=== PATIENT | male | born 1955 | race African-American/Black ===

== ENCOUNTER 2017-09-19 15:02 | Emergency (ER) | payer OTHER ==
[2017-09-19] MEDS ORDERED: ASPIRIN 81 MG TABLET, CHEWABLE PO ONE (15:37)
[2017-09-19] MEDS ORDERED: ONDANSETRON 4 MG TAB.RAPDIS PO ONE (15:37)
--- NOTE | 2017-09-19 15:46 | ER Document Report ---
ED Medical Screen (RME) - General TRAVEL OUTSIDE OF THE [place] IN LAST 30 DAYS: No - General Chief Complaint: Nausea Stated Complaint: ABDOMINAL ISSUES Time Seen by Provider: 09/19/17 15:30 Notes: Patient is a 62 year old male presenting to the emergency department for nausea and dizziness. Patient states he felt like this previously when he had an MN. Patient denies any chest pain, difficulty breathing, or vomiting. Patient states he had a triple bypass x 10 years ago and his last catheterization was 1 year ago. 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 (TRACEE LCUERO) - Related Data Allergies/Adverse Reactions: No Known Allergies Allergy (Verified 09/19/17 15:06) Home Medications: Current Home Medications Aspirin [Aspirin EC] 81 mg PO DAILY 09/19/17 [History] Carvedilol [Coreg] 1 tab PO Q12 09/19/17 [History] Lisinopril [Prinivil 40 mg Tablet] 20 mg PO DAILY 09/19/17 [History] Simvastatin [Simvastatin] 40 mg PO DAILY 09/19/17 [History] Zolpidem Tartrate 10 mg PO QHS PRN 09/19/17 [History] Past Medical History - Social History Chew tobacco use (# tins/day): No Frequency of alcohol use: None Drug Abuse: None - Past Medical History Cardiac Medical History: Reports: Hx Heart Attack, Hx Hypercholesterolemia, Hx Hypertension Renal/ Medical History: Denies: Hx Peritoneal Dialysis Past Surgical History: Reports: Hx Coronary Artery Bypass Graft, Hx Open Heart Surgery - CABG x 3 - Immunizations Hx Diphtheria, Pertussis, Tetanus Vaccination: No History of Influenza Vaccine for 08/2017 - 01/2018 Season: No Physical Exam - Vital signs Vitals: Temp Pulse Resp BP Pulse Ox 98.6 F 65 20 126/85 H 98 09/19/17 15:06 09/19/17 15:06 09/19/17 15:06 09/19/17 15:06 09/19/17 15:06 - Notes Notes: GENERAL: Alert, interacts well. No acute distress. LUNGS: Clear to auscultation bilaterally, no wheezes, rales, or rhonchi. No respiratory distress. HEART: Regular rate and rhythm. No murmurs, gallops, or rubs. (TRACEE LUCERO) - Vital Signs Vital signs: Temp Pulse Resp BP Pulse Ox 98.6 F 65 20 126/85 H 98 09/19/17 15:06 09/19/17 15:06 09/19/17 15:06 09/19/17 15:06 09/19/17 15:06 Scribe Documentation - Scribe Written by Amitaibe:: Duc Hand 09/19/2017 15:47 acting as scribe for :: Angel
--- NOTE | 2017-09-19 16:15 | ER Document Report ---
ED GI/ - General Chief Complaint: Nausea Stated Complaint: ABDOMINAL ISSUES Time Seen by Provider: 09/19/17 15:30 Notes: The patient is a 62-year-old male, past medical history CAD status post triple bypass 10 years ago, presents with episode of upper abdominal cramping and slight nausea that felt like indigestion. He drank stephenie ed and took a Tums with relief of his symptoms. He is concerned because 10 years ago, he had similar symptoms and was told he had a heart attack. He is currently completely asymptomatic and denies chest pain, shortness of breath, nausea, vomiting, current abdominal pain, fevers, diarrhea, constipation or urinary symptoms. TRAVEL OUTSIDE OF THE [place] IN LAST 30 DAYS: No - Related Data Allergies/Adverse Reactions: No Known Allergies Allergy (Verified 09/19/17 15:06) Home Medications: Current Home Medications Aspirin [Aspirin EC] 81 mg PO DAILY 09/19/17 [History] Carvedilol [Coreg] 1 tab PO Q12 09/19/17 [History] Lisinopril [Prinivil 40 mg Tablet] 20 mg PO DAILY 09/19/17 [History] Simvastatin [Simvastatin] 40 mg PO DAILY 09/19/17 [History] Zolpidem Tartrate 10 mg PO QHS PRN 09/19/17 [History] Past Medical History - General Information source: Patient - Social History Smoking Status: Former Smoker Chew tobacco use (# tins/day): No Frequency of alcohol use: None Drug Abuse: None Family History: Reviewed & Not Pertinent - Past Medical History Cardiac Medical History: Reports: Hx Heart Attack, Hx Hypercholesterolemia, Hx Hypertension Renal/ Medical History: Denies: Hx Peritoneal Dialysis Past Surgical History: Reports: Hx Coronary Artery Bypass Graft, Hx Open Heart Surgery - CABG x 3 - Immunizations Hx Diphtheria, Pertussis, Tetanus Vaccination: No Review of Systems - Review of Systems Notes: REVIEW OF SYSTEMS: CONSTITUTIONAL: -fevers, -chills EENT: -eye pain, -difficulty swallowing, -nasal congestion CARDIOVASCULAR:-chest pain, -syncope. RESPIRATORY: -cough, -SOB GASTROINTESTINAL: +abdominal pain, +nausea, -vomiting, -diarrhea GENITOURINARY: -dysuria, -hematuria MUSCULOSKELETAL: -back pain, -neck pain SKIN: -rash or skin lesions. HEMATOLOGIC: -easy bruising or bleeding. LYMPHATIC: -swollen, enlarged glands. NEUROLOGICAL: -altered mental status or loss of consciousness, -headache, - neurologic symptoms PSYCHIATRIC: -anxiety, -depression. ALL OTHER SYSTEMS REVIEWED AND NEGATIVE. Physical Exam - Vital signs Vitals: Temp Pulse Resp BP Pulse Ox 98.6 F 65 20 126/85 H 98 09/19/17 15:06 09/19/17 15:06 09/19/17 15:06 09/19/17 15:06 09/19/17 15:06 - Notes Notes: PHYSICAL EXAMINATION: GENERAL: Well-appearing, well-nourished and in no acute distress. HEAD: Atraumatic, normocephalic. EYES: Pupils equal round and reactive to light, extraocular movements intact, sclera anicteric, conjunctiva are normal. ENT: nares patent, oropharynx clear without exudates. Moist mucous membranes. NECK: Normal range of motion, supple without lymphadenopathy LUNGS: Breath sounds clear to auscultation bilaterally and equal. No wheezes rales or rhonchi. HEART: Regular rate and rhythm without murmurs ABDOMEN: Soft, nontender, normoactive bowel sounds. No guarding, no rebound. No masses appreciated. EXTREMITIES: Normal range of motion, no pitting or edema. No cyanosis. NEUROLOGICAL: Cranial nerves grossly intact. Normal speech, normal gait. Normal sensory and motor exams. PSYCH: Normal mood, normal affect. SKIN: Warm, Dry, normal turgor, no rashes or lesions noted. Course - Re-evaluation Re-evalutation: Patient appears very well. He has absolutely no abdominal tenderness and his EKG and labs are completely unremarkable. There is no sign of active ischemia and he is drinking without any nausea or vomiting. Instructed patient to follow -up with his primary care physician for further evaluation and treatment. - Vital Signs Vital signs: Temp Pulse Resp BP Pulse Ox 98.6 F 65 15 119/80 97 09/19/17 15:06 09/19/17 15:06 09/19/17 18:01 09/19/17 18:01 09/19/17 18:01 - Laboratory Result Diagrams: 09/19/17 17:40 09/19/17 17:40 Laboratory results interpreted by me: 09/19/17 09/19/17 17:40 17:40 MCH 26.5 L RDW 15.9 H Calcium 10.3 H - EKG Interpretation by Me EKG shows normal: Sinus rhythm, [place], Intervals, QRS Complexes, ST-T Waves Rate: Normal [place]/QRS: RBBB, LAHB/LAFB When compared to previous EKG there are: No significant change Discharge - Discharge Clinical Impression: Abdominal cramping Condition: Stable Disposition: HOME, SELF-CARE Additional Instructions: ABDOMINAL PAIN: There are many causes of abdominal pain. Pain can mean a serious problem requiring surgery (such as appendicitis). It can also be an innocent problem that goes away on its own (such as a viral infection). Often, time must pass to determine the cause of pain. The physician does not feel that hospitalization is necessary, at present. Things may change within the next 24 hours. Call the doctor or come back for re- examination if any problems occur, such as: (1) Pain that becomes more severe, steady, or becomes concentrated in one specific area. Also, pain that is more severe with movement or coughing. (2) Vomiting that persists or becomes more frequent. (3) Blood in the vomitus, urine, or bowel movements. Blood in the stool may have a tarry or black appearance. (4) Shaking chills or fever greater than 100 degrees F. (5) The abdomen becomes more distended or swollen. (6) Bowel movements cease. (7) Failure to improve as expected. NORMAL EXAM AND WORKUP: At this time, your examination and workup show no significant abnormality. No significant abnormal physical findings are noted. All laboratory, EKG, and imaging (x-ray, CT scans, ultrasound) studies that were ordered show no significant abnormality. Although your examination and all studies that were ordered showed no significant abnormal finding, there are no examinations and no studies that are 100% accurate. There is always the possibility that some abnormality could exist and not be detected with physical examination or within the limits and capabilities of laboratory and other studies. You should return or follow up as you were instructed on your visit today for further evaluation if your symptoms do not resolve. FOLLOW-UP CARE: If you have been referred to a physician for follow-up care, call the physician s office for an appointment as you were instructed or within the next two days. If you experience worsening or a significant change in your symptoms, notify the physician immediately or return to the Emergency Department at any time for re-evaluation. CHEST PAIN OF UNCLEAR CAUSE: The exact cause of your chest pain isn't clear. Fortunately, there is no evidence of a dangerous medical condition. Further testing may be required to find the source of the pain. Most often, we find that this pain is coming from the chest wall -- the muscles or rib joints in the chest. But chest pain can come from the lung and lung lining, the esophagus, the heart valves or heart lining, and even the stomach or gallbladder. Rest. Eat lightly until the pain is gone. We may prescribe medicine for pain and inflammation. You should call the physician immediately if the pain radiates to the shoulder, jaw or arms; if you start to run a fever or develop a cough; or if you develop shortness of breath, or other new or alarming symptoms. NORMAL EXAM AND WORKUP: At this time, your examination and workup show no significant abnormality. No significant abnormal physical findings were noted. All laboratory, EKG, and imaging (x-ray, CT scans, ultrasound) studies that were ordered show no significant abnormality. Although your examination and all studies that were ordered showed no significant abnormal finding, there are no examinations and no studies that are 100% accurate. There is always the possibility that some abnormality could exist and not be detected with physical examination or within the limits and capabilities of laboratory and other studies. You should return or follow up as you were instructed on your visit today for further evaluation if your symptoms do not resolve. CHEST WALL PAIN: Your chest pain may be coming from the chest wall. This is often caused by straining the muscles or joints in the chest during physical activity, direct trauma, coughing, or vigorous vomiting. Persons with arthritis are especially prone to this type of pain, due to inflammation of the cartilage joints near the breast bone. Occasionally, no cause can be found. Rest from strenuous physical activity. This kind of chest pain is usually made worse by movement of the chest. Depending on the symptoms, we may prescribe medicine for pain, muscle relaxation, and antiinflammatory effects. If the pain is new, and seems to be due to muscle strain, cold packs can help. Otherwise, apply gentle warmth to the painful area for 15 minutes every hour or two. You should call contact the doctor immediately if things change. Further evaluation is needed if you develop a fever or cough, if the nature of the pain changes, or if you become short of breath. ANGINA EPISODE: Your physician has diagnosed the pain you experienced as an episode of angina. Angina occurs when a portion of the heart muscle temporarily lacks oxygen. It does not cause any permanent heart damage, but serves as a warning. Hospitalization is not necessary now. Evaluation of your cardiac condition , and medical therapy for angina will be necessary. It's important you be sure to keep all appointments and take medication exactly as prescribed. Angina is usually treated with a type of "nitrate" medication. This is available as ointment, pills, or sublingual (under the tongue) tablets. Depending on your clinical situation, other medications may be added to help control angina. These may include beta blockers or calcium blockers. If episodes of angina are occurring with increased frequency, or if chest pain lasts longer than 15 minutes or does not respond to nitroglycerin, you must seek emergency medical care immediately. ACID REFLUX DISEASE (GERD): Gastro-Esophageal Reflux Disease (GERD) is caused by stomach acid refluxing back up into the esophagus. The valve at the end of the esophagus may be weak. This is common in persons with a hiatal hernia. GERD symptoms can include indigestion, chest pain, heartburn, or food "sticking." Certain foods, alcohol, and aspirin can make GERD worse. Treatment depends on the severity. Usually, antacids or acid-suppressing medicines are used. When the esophagus is acutely inflamed, the physician will often prescribe membrane-protective drugs such as Carafate. Some patients benefit from medication such as Reglan that tightens the valve at the top of the stomach. Avoid those foods that bring on your symptoms. For many people, these foods are coffee, chocolate, onions, garlic, and carbonated drinks. Don't use alcohol, aspirin, caffeine, or tobacco. Don't eat late at night -- within 4 hours of bedtime. Don't over-eat. If necessary, elevate the head of your bed about 4 inches so that stomach acid will not roll up into your esophagus. Call the doctor if you develop severe chest pain, inability to swallow fluids, fever, or worsening symptoms. ANTACID THERAPY: You have been instructed to start antacid therapy. Antacids directly neutralize stomach acid. This is useful for acid irritation of the esophagus, gastritis, and ulcers. You should take two tablespoons of antacid one hour after each meal and three hours after each meal. If you are not eating, take the antacid every two hours. If you are using a concentrate (such as Maalox TC), use only one tablespoon. Many antacids affect the bowels. The most common problem is diarrhea. In this case, a pure aluminum hydroxide antacid (such as AlternaGel) can be substituted for some or all doses. If the problem is constipation, add a teaspoon of Milk of Magnesia to each dose. Call the doctor if you experience continued diarrhea or constipation, or if you develop lightheadedness, bloody stool or vomitus, severe abdominal pain, or black stool. FOLLOW-UP CARE: If you have been referred to a physician for follow-up care, call the physician s office for an appointment as you were instructed or within the next two days. If you experience worsening or a significant change in your symptoms, notify the physician immediately or return to the Emergency Department at any time for re-evaluation.
--- NOTE | 2017-09-19 16:23 | RADIOLOGY REPORT (SQ) ---
EXAM DESCRIPTION: CHEST SINGLE VIEW COMPLETED DATE/TIME: 09/19/2017 4:14 pm REASON FOR STUDY: nausea, h/o AK felt similar COMPARISON: 01/15/2008 EXAM PARAMETERS: NUMBER OF VIEWS: One view. TECHNIQUE: Single frontal radiographic view of the chest acquired. RADIATION DOSE: NA LIMITATIONS: None. FINDINGS: LUNGS AND PLEURA: No opacities, masses or pneumothorax. No pleural effusion. MEDIASTINUM AND HILAR STRUCTURES: No masses. Contour normal. HEART AND VASCULAR STRUCTURES: Heart normal in size. Normal vasculature. BONES: No acute findings. HARDWARE: Median sternotomy wires noted and intact. Prior CABG. OTHER: No other significant finding. IMPRESSION: NO ACUTE RADIOGRAPHIC FINDING IN THE CHEST. TECHNICAL DOCUMENTATION: JOB ID: [id number]
[2017-09-19 18:27] LABS: ABSOLUTE BASOPHILS # (AUTO) 0.1 10^3/uL (0.0-0.2); ABSOLUTE EOSINOPHILS # (AUTO) 0.1 10^3/uL (0.0-0.6); ABSOLUTE LYMPHOCYTES (AUTO) 2.7 10^3/uL (0.5-4.7); ABSOLUTE MONOCYTES (AUTO) 0.6 10^3/uL (0.1-1.4); ABSOLUTE NEUT (AUTO) 3.3 10^3/uL (1.7-8.2); EOSINOPHILS % (AUTO) 2.1 % (0-6); HEMATOCRIT 42.1 % (37.9-51.0); HGB HCT DIFFERENCE -0.1; LYMPHOCYTES % (AUTO) 39.6 % (13-45); MEAN CORPUSCULAR HEMOGLOBIN 26.5 pg (27.0-33.4); MEAN CORPUSCULAR HGB CONC 33.3 g/dL (32.0-36.0); MEAN CORPUSCULAR VOLUME 80 fl (80-97); MONOCYTES % (AUTO) 8.6 % (3-13); RED BLOOD COUNT 5.28 10^6/uL (4.35-5.55); RED CELL DISTRIBUTION WIDTH 15.9 % (11.5-14.0); SEGMENTED NEUTROPHILS % (AUTO) 48.7 % (42-78); WHITE BLOOD COUNT 6.8 10^3/uL (4.0-10.5)
[2017-09-19 18:41] LABS: ALANINE AMINOTRANSFERASE 36 U/L (21-72); ALBUMIN 4.5 g/dL (3.5-5.0); ALKALINE PHOSPHATASE 78 U/L (38-126); ANION GAP 13 (5-19); ASPARTATE AMINO TRANSFERASE 17 U/L (17-59); BILIRUBIN,DIRECT 0.4 mg/dL (0.0-0.4); BILIRUBIN,TOTAL 0.5 mg/dL (0.2-1.3); BLOOD UREA NITROGEN 11 mg/dL (7-20); CALCIUM 10.3 mg/dL (8.4-10.2); CARBON DIOXIDE 27 mmol/L (22-30); CHLORIDE 105 mmol/L (98-107); CREATINE KINASE 134 U/L (55-170); CREATININE RESULT 1.05 mg/dL (0.52-1.25); GLUCOSE 95 mg/dL (75-110); POTASSIUM 4.5 mmol/L (3.6-5.0); SODIUM 144.6 mmol/L (137-145); TOTAL PROTEIN 8.1 g/dL (6.3-8.2)
[2017-09-19 19:03] VITALS: BP 120/80
--- NOTE | 2017-09-20 09:20 | EKG REPORT ---
SEVERITY:- ABNORMAL ECG - SINUS RHYTHM VENTRICULAR PREMATURE COMPLEX RBBB AND LPFB INFERIOR INFARCT, AGE INDETERMINATE : Confirmed by: Carlene Trent MD 20-Sep-2017 09:19:22
== END 2017-09-19 19:00 | disposition home or self-care (01) ==
LOC: ER 15:02
DX: R10.9 Unspecified abdominal pain (principal); R11.0 Nausea; I25.10 Atherosclerotic heart disease of native coronary artery without angina pectoris; Z79.899 Other long term (current) drug therapy; Z87.891 Personal history of nicotine dependence
CPT/HCPCS: 93005; 99284; 36415; 82550; 83690; 85025; 80053; 84484; 71010; 93010; S0119

== ENCOUNTER → 2017-12-11 | Outpatient (CLI) | payer OTHER ==
--- NOTE | 2017-12-11 12:49 | RADIOLOGY REPORT (SQ) ---
EXAM DESCRIPTION: CT LUNG CANCER SCREENING COMPLETED DATE/TIME: 12/11/2017 8:43 am REASON FOR STUDY: Z72.0 TOBACCO USE Z72.0 TOBACCO USE Has the patient had a Chest CT scan within the past year? No Was the patient offered tobacco cessation counseling? Yes Was the patient engaged in shared decision making for this test? Yes Does the patient have signs or symptoms of Lung Cancer? No Is the patient a smoker? No How many packs per year? 365 How many years since quitting smoking? More than 5 years Patients age: 62 COMPARISON: None. TECHNIQUE: Low Dose CT scan performed of the chest without intravenous contrast for purposes of scre ening for lung cancer. Images reviewed with lung, soft tissue and bone windows. Reconstructed coron al and sagittal MPR images reviewed. All images stored on PACS. All CT scanners at this facility use dose modulation, iterative reconstruction, and/or weight based d osing when appropriate to reduce radiation dose to as low as reasonably achievable (ALARA). [facility]: Dose Right [facility]: CareDose [facility]: Dose Right [facility]: Teradose 4D [facility]: Open-Xchange RADIATION DOSE: 2.8 mGy. . LIMITATIONS: None FINDINGS: LUNGS AND PLEURA: No masses or nodules. No pleural effusions or calcifications. No pne umothorax. No scarring or interstitial changes. HILAR AND MEDIASTINAL STRUCTURES: No identified masses. No abnormal nodes. HEART AND VASCULAR STRUCTURES: No aortic aneurysm. No pericardial effusion. No cardiac devices. CORONARY ARTERY CALCIFICATIONS: No significant calcifications. Patient is post CABG UPPER ABDOMEN, THYROID, BONES, OTHER SOFT TISSUES: No significant findings. IMPRESSION: NO SIGNIFICANT FINDING IN THE LUNGS ON NON-CONTRASTED CHEST CT. NO OTHER CLINICALLY SIGNIFICANT/POTENTIALLY CLINICALLY SIGNIFICANT FINDINGS LUNGRADS: LUNGRADS: 1 NEGATIVE. NO NODULES, OR DEFINITELY BENIGN NODULES MODIFIER: NONE RECOMMENDATION: Continue annual screening with LDCT in 12 months. COMMENT: CRITERIA: No lung nodules. Nodules with specific calcifications: Complete, central, popcorn, concentric rings and fat containin g nodules. TECHNICAL DOCUMENTATION: JOB ID: [id number] Quality ID # [id number]: Final reports with documentation of one or more dose reduction techniques (e.g., Au tomated exposure control, adjustment of the mA and/or kV according to patient size, use of iterative reconstruction technique) 2010 [facility]
== END ==
LOC: RAD 09:00
PROVIDERS: ATTEND Physician Assistant
DX: Z12.2 Encounter for screening for malignant neoplasm of respiratory organs (principal); Z72.0 Tobacco use; Z95.1 Presence of aortocoronary bypass graft
CPT/HCPCS: G0297

== ENCOUNTER → 2019-09-07 | Outpatient (CLI) | payer OTHER, MEDICARE ==
[2019-09-07 12:47] LABS: ANION GAP 7 (5-19); BLOOD UREA NITROGEN 10 mg/dL (7-20); CALCIUM 9.4 mg/dL (8.4-10.2); CARBON DIOXIDE 30 mmol/L (22-30); CHLORIDE 105 mmol/L (98-107); GLUCOSE 99 mg/dL (75-110); POTASSIUM 4.8 mmol/L (3.6-5.0)
== END ==
LOC: OD 11:44
PROVIDERS: ATTEND Family Medicine
DX: E87.5 Hyperkalemia (principal)
CPT/HCPCS: 36415; 80048

== ENCOUNTER 2019-11-15 02:08 | Emergency (ER) | payer MEDICARE, OTHER ==
[2019-11-15 02:34] VITALS: BP 150/84
--- NOTE | 2019-11-15 14:24 | EKG REPORT ---
SEVERITY:- ABNORMAL ECG - SINUS RHYTHM RBBB AND LPFB INFERIOR INFARCT, AGE INDETERMINATE : Confirmed by: Pankaj Gaxiola 15-Nov-2019 14:23:19
== END 2019-11-15 02:49 | disposition left against medical advice (07) ==
LOC: ER 02:08
DX: Z53.21 Procedure and treatment not carried out due to patient leaving prior to being seen by health care provider (principal)
CPT/HCPCS: 93005; 93010

== ENCOUNTER 2019-11-29 21:55 | Observation (INO) | payer MEDICARE, OTHER ==
[2019-11-29] MEDS ORDERED: ASPIRIN 81 MG TABLET, CHEWABLE PO ONE (22:52)
--- NOTE | 2019-11-29 22:58 | ER Document Report ---
ED Medical Screen (RME) - General Chief Complaint: Epigastric Pain Stated Complaint: EPIGASTRIC PAIN Time Seen by Provider: 11/29/19 22:47 Primary Care Provider: MERLYN MIRELES MD [Primary Care Provider] - Follow up as needed Notes: Patient is a 64-year-old male who presents to the emergency department with a chief complaint of epigastric pain. Patient has history of of an [place] in the past. His symptoms started around 2100 this evening. He makes some baking soda and water and it helped with the symptoms. Exam: S1, S2. I have greeted and performed a rapid initial assessment of this patient. A comprehensive ED assessment and evaluation of the patient, analysis of test results and completion of medical decision making process will be conducted by an additional ED providers. TRAVEL OUTSIDE OF THE [place] IN LAST 30 DAYS: No - Related Data Allergies/Adverse Reactions: No Known Allergies Allergy (Verified 09/19/17 15:06) Home Medications: omeprazole 20 mg qam. lisinopril 20 mg qday. ezetimibe 10 mg qday. atoravastatin 40 mg po qday. coreg 25 mg po qday. asa 81 mg po qday Past Medical History - Past Medical History Cardiac Medical History: Reports: Hx Heart Attack, Hx Hypercholesterolemia, Hx Hypertension Renal/ Medical History: Denies: Hx Peritoneal Dialysis Past Surgical History: Reports: Hx Coronary Artery Bypass Graft, Hx Open Heart Surgery - CABG x 3 - Immunizations Hx Diphtheria, Pertussis, Tetanus Vaccination: No Physical Exam - Vital signs Vitals: Temp Pulse Resp BP Pulse Ox 98.3 F 62 18 138/69 H 96 11/29/19 22:08 11/29/19 22:08 11/29/19 22:08 11/29/19 22:08 11/29/19 22:08 Course - Vital Signs Vital signs: Temp Pulse Resp BP Pulse Ox 98.3 F 62 18 138/69 H 96 11/29/19 22:08 11/29/19 22:08 11/29/19 22:08 11/29/19 22:08 11/29/19 22:08 Doctor's Discharge - Discharge Referrals: MERLYN MIRELES MD [Primary Care Provider] - Follow up as needed
[2019-11-29 23:09] LABS: ABSOLUTE BASOPHILS # (AUTO) 0.1 10^3/uL (0.0-0.2); ABSOLUTE EOSINOPHILS # (AUTO) 0.1 10^3/uL (0.0-0.6); ABSOLUTE LYMPHOCYTES (AUTO) 2.6 10^3/uL (0.5-4.7); ABSOLUTE MONOCYTES (AUTO) 0.8 10^3/uL (0.1-1.4); ABSOLUTE NEUT (AUTO) 5.7 10^3/uL (1.7-8.2); BASOPHILS % (AUTO) 0.7 % (0-2); EOSINOPHILS % (AUTO) 1.5 % (0-6); HEMATOCRIT 37.2 % (37.9-51.0); HEMOGLOBIN 12.1 g/dL (13.5-17.0); LYMPHOCYTES % (AUTO) 28.3 % (13-45); MEAN CORPUSCULAR HEMOGLOBIN 25.8 pg (27.0-33.4); MEAN CORPUSCULAR HGB CONC 32.6 g/dL (32.0-36.0); MEAN CORPUSCULAR VOLUME 79 fl (80-97); MONOCYTES % (AUTO) 8.1 % (3-13); PLATELET COUNT 202 10^3/uL (150-450); RED BLOOD COUNT 4.71 10^6/uL (4.35-5.55); RED CELL DISTRIBUTION WIDTH 16.6 % (11.5-14.0); SEGMENTED NEUTROPHILS % (AUTO) 61.4 % (42-78); TOTAL CELLS COUNTED % (AUTO) 100 %; WHITE BLOOD COUNT 9.3 10^3/uL (4.0-10.5)
[2019-11-29 23:30] LABS: ALBUMIN 3.6 g/dL (3.5-5.0); ALKALINE PHOSPHATASE 78 U/L (38-126); ANION GAP 7 (5-19); ASPARTATE AMINO TRANSFERASE 18 U/L (17-59); BILIRUBIN,DIRECT 0.3 mg/dL (0.0-0.4); BILIRUBIN,TOTAL 0.3 mg/dL (0.2-1.3); BLOOD UREA NITROGEN 12 mg/dL (7-20); CARBON DIOXIDE 35 mmol/L (22-30); CHLORIDE 102 mmol/L (98-107); CREATINE KINASE 114 U/L (55-170); GLUCOSE 146 mg/dL (75-110); POTASSIUM 3.8 mmol/L (3.6-5.0); TOTAL PROTEIN 6.9 g/dL (6.3-8.2)
--- NOTE | 2019-11-29 23:34 | RADIOLOGY REPORT (SQ) ---
XR CHEST 1 VIEW EXAM DATE: 11/29/2019 10:52 PM [employer] INSPECTOR HISTORY: Epigastric pain; hx of MN. COMPARISON: 09/19/2017 FINDINGS: Stable heart size with prior CABG noted. No pulmonary edema. The lungs are clear. No pleural effusions or pneumothorax. No acute bony findings are seen. IMPRESSION: No evidence of acute cardiopulmonary disease.
--- NOTE | 2019-11-30 04:42 | ER Document Report ---
ED General - General Chief Complaint: Epigastric Pain Stated Complaint: EPIGASTRIC PAIN Time Seen by Provider: 11/29/19 22:47 Mode of Arrival: Ambulatory Information source: Patient Notes: 64-year-old male presented to ED for complaint of epigastric/chest pain. He states he was in his lower chest upper abdomen. He states he has a history of UT with a CABG her blood pressure and cholesterol and reflux. He states his pain started about 9:00 and he ate last about 6:00. He states he took some baking soda water and it helps some. He states he was given aspirin when he came to the emergency room. He states he was concerned because he does have a cardiac history and is got another cardiac appointment in November. He states he is not having any pain at this time. He states he had a similar pain about a week ago and he became concerned because this is the second time he had this pain. Patient is alert oriented respirations regular nonlabored speaking in full sentences. Patient has a negative troponin earlier and I will get the second troponin if it is negative I will send him home is he is no longer having any pain or discomfort. TRAVEL OUTSIDE OF THE [place] IN LAST 30 DAYS: No - HPI Onset: This evening Onset/Duration: Sudden, Gone Quality of pain: No pain Severity: None Pain Level: Denies Associated symptoms: Chest pain - /Epigastric pain Exacerbated by: Denies Relieved by: Denies Similar symptoms previously: Yes Recently seen / treated by doctor: No - Related Data Allergies/Adverse Reactions: No Known Allergies Allergy (Verified 09/19/17 15:06) Home Medications: omeprazole 20 mg qam. lisinopril 20 mg qday. ezetimibe 10 mg qday. atoravastatin 40 mg po qday. coreg 25 mg po qday. asa 81 mg po qday Past Medical History - General Information source: Patient - Social History Smoking Status: Former Smoker Cigarette use (# per day): No Frequency of alcohol use: None Drug Abuse: None Family History: Reviewed & Not Pertinent Patient has suicidal ideation: No Patient has homicidal ideation: No - Past Medical History Cardiac Medical History: Reports: Hx Heart Attack, Hx Hypercholesterolemia, Hx Hypertension Pulmonary Medical History: Reports: None EENT Medical History: Reports: None Neurological Medical History: Reports: None Endocrine Medical History: Reports: Other - boderline dm Renal/ Medical History: Reports: None Malignancy Medical History: Reports None GI Medical History: Reports: Hx Gastroesophageal Reflux Disease Musculoskeletal Medical History: Reports None Skin Medical History: Reports None Psychiatric Medical History: Reports: None Traumatic Medical History: Reports: None Infectious Medical History: Reports: None Past Surgical History: Reports: Hx Coronary Artery Bypass Graft, Hx Open Heart Surgery - CABG x 3 - Immunizations Hx Diphtheria, Pertussis, Tetanus Vaccination: No Review of Systems - Review of Systems Constitutional: No symptoms reported EENT: No symptoms reported Cardiovascular: Chest pain Respiratory: No symptoms reported Gastrointestinal: No symptoms reported Genitourinary: No symptoms reported Male Genitourinary: No symptoms reported Musculoskeletal: No symptoms reported Skin: No symptoms reported Hematologic/Lymphatic: No symptoms reported Neurological/Psychological: No symptoms reported Physical Exam - Vital signs Vitals: Temp Pulse Resp BP Pulse Ox 98.3 F 62 18 138/69 H 96 11/29/19 22:08 11/29/19 22:08 11/29/19 22:08 11/29/19 22:08 11/29/19 22:08 Interpretation: Normal - General General appearance: Appears well, Alert - HEENT Head: Normocephalic, Atraumatic Eyes: Normal Pupils: PERRL - Respiratory Respiratory status: No respiratory distress Chest status: Nontender Breath sounds: Normal Chest palpation: Normal - Cardiovascular Rhythm: Regular Heart sounds: Normal auscultation Murmur: No - Abdominal Inspection: Normal Distension: No distension Bowel sounds: Hyperactive Tenderness: Nontender. No: Tender Organomegaly: No organomegaly - Back Back: Normal, Nontender - Extremities General upper extremity: Normal inspection, Nontender, Normal color, Normal ROM, Normal temperature General lower extremity: Normal inspection, Nontender, Normal color, Normal ROM, Normal temperature, Normal weight bearing. No: Ariana's sign - Neurological Neuro grossly intact: Yes Cognition: Normal Orientation: AAOx4 Ashanti Coma Scale Eye Opening: Spontaneous Taylor Coma Scale Verbal: Oriented Ashanti Coma Scale Motor: Obeys Commands Ashanti Coma Scale Total: 15 Speech: Normal Motor strength normal: LUE, RUE, LLE, RLE Sensory: Normal - Psychological Associated symptoms: Normal affect, Normal mood - Skin Skin Temperature: Warm Skin Moisture: Dry Skin Color: Normal Course - Re-evaluation Re-evalutation: 11/30/19 05:36 Troponin elevated at 0.049 for second level. First level was negative. Patient denies any pain at this time. Spoke with Dr. Noble who stated to put the patient on IMCU observation under Dr. Milner. Patient does have a cardiac history with an UT and CABG. Dr. Alva recommended 1 inch Nitropaste at this time - Vital Signs Vital signs: Temp Pulse Resp BP Pulse Ox 97.9 F 67 19 134/88 H 97 11/30/19 06:11 11/30/19 05:56 11/30/19 08:01 11/30/19 08:01 11/30/19 08:01 - Laboratory Result Diagrams: 11/29/19 22:25 11/30/19 04:35 Laboratory results interpreted by me: 11/29/19 11/29/19 11/30/19 22:25 22:25 04:35 Hgb 12.1 L Hct 37.2 L MCV 79 L MCH 25.8 L RDW 16.6 H Carbon Dioxide 35 H 33 H Creatinine 1.28 H Est GFR (MDRD) Non-Af 56 L Glucose 146 H - Diagnostic Test Radiology reviewed: Image reviewed, Reports reviewed Discharge - Discharge Clinical Impression: Chest pain Qualifiers: Chest pain type: unspecified Qualified Code(s): R07.9 - Chest pain, unspecified Condition: Stable Disposition: ADMITTED OBSERVATION Admitting Provider: Alf - Spoke with Aide Unit Admitted: CU
[2019-11-30 05:02] LABS: ALBUMIN 3.6 g/dL (3.5-5.0); ALKALINE PHOSPHATASE 80 U/L (38-126); ANION GAP 5 (5-19); ASPARTATE AMINO TRANSFERASE 17 U/L (17-59); BILIRUBIN,DIRECT 0.2 mg/dL (0.0-0.4); BILIRUBIN,TOTAL 0.3 mg/dL (0.2-1.3); BLOOD UREA NITROGEN 11 mg/dL (7-20); CALCIUM 9.1 mg/dL (8.4-10.2); CARBON DIOXIDE 33 mmol/L (22-30); CHLORIDE 106 mmol/L (98-107); GLUCOSE 99 mg/dL (75-110); POTASSIUM 4.1 mmol/L (3.6-5.0); TOTAL PROTEIN 6.8 g/dL (6.3-8.2)
[2019-11-30] MEDS ORDERED: NITROGLYCERIN 2% OINTMENT 1 GM PACKET TP ONE (05:33)
--- NOTE | 2019-11-30 09:10 | EKG REPORT ---
SEVERITY:- ABNORMAL ECG - SINUS RHYTHM VENTRICULAR TRIGEMINY RBBB AND LPFB INFERIOR INFARCT, OLD, AT LEAST SINCE [id number] : Confirmed by: Andrey Cortez MD 30-Nov-2019 09:09:45
--- NOTE | 2019-11-30 09:11 | EKG REPORT ---
SEVERITY:- ABNORMAL ECG - SINUS RHYTHM RBBB AND LPFB INFERIOR INFARCT, OLD SINCE [id number]. : Confirmed by: Andrey Cortez MD 30-Nov-2019 09:10:24
[2019-11-30] MEDS ORDERED: NITROGLYCERIN 0.4 MG/TAB 25 TAB/BOTTLE SL PRN (10:42)
[2019-11-30] MEDS ORDERED: IPRATROPIUM/ALBUTEROL 0.5-2.5 MG/3 ML AMPUL NEB PRN (10:45)
[2019-11-30 11:53] LABS: CREATINE KINASE MB 1.5 ng/mL (<4.55); TROPONIN I 0.047 ng/mL
[2019-11-30] MEDS: PANTOPRAZOLE SODIUM 40 MG TABLET.DR PO SCH (13:16)
[2019-11-30] MEDS: ASPIRIN 81 MG TABLET, ENT COATED PO SCH (13:16)
[2019-11-30] MEDS: ENOXAPARIN SODIUM INJ 40 MG/0.4 ML DISP.SYRIN SUBCUT SCH (13:16)
[2019-11-30] MEDS ORDERED: (PENDING PHARMACY ID) (Carvedilol [Coreg] 25 MG) PO SCH (14:30)
[2019-11-30] MEDS ORDERED: (PENDING PHARMACY ID) (Lisinopril [Prinivil 40 Mg Tablet] 20 MG) PO SCH (14:30)
--- NOTE | 2019-11-30 15:18 | PDOC H&P ---
History of Present Illness Admission Date/PCP: 11/30/19 05:45 MERLYN MIRELES MD Patient complains of: Epigastric pain History of Present Illness: MAXINE CARR is a 64 year old male patient of Dr. Mireles who presented to the ED with complain of recurrent epigastric pain over last couple of days. Patient reported that his last episode was about 2 hours before presenting to the ED. He localized his pain to the epigastric region without radiation into his chest, neck, shoulder or upper extremities. His pain was relieved with self administration of baking soda in water with reflux event. Patient denied any associated palpitation, dizziness, or diaphoresis with his chest pain. His initial evaluation and laboratory assessment was unrevealing but his second Troponin I was elevated to indeterminate range. Due to his listed morbidities, there was concern about possible ongoing cardiac event. he was advise hospitalization for further evaluation and management. His morbidities are listed below. Past Medical History Cardiac Medical History: Reports: Myocardial Infarction, Hyperlipidema, Hypertension Pulmonary Medical History: Reports: None EENT Medical History: Reports: None Neurological Medical History: Reports: None Endocrine Medical History: Reports: Other - boderline dm Renal/ Medical History: Reports: None Malignancy Medical History: Reports: None GI Medical History: Reports: Gastroesophageal Reflux Disease Musculoskeltal Medical History: Reports: None Skin Medical History: Reports: None Psychiatric Medical History: Reports: None Traumatic Medical History: Reports: None Infectious Medical History: Reports: None Past Surgical History Past Surgical History: Reports: Coronary Artery Bypass Graft Social History Smoking Status: Never Smoker Drugs: None - Advance Directive Resuscitation Status: Full Code Family History Family History: Reviewed & Not Pertinent Parental Family History Reviewed: Yes Children Family History Reviewed: Yes Sibling(s) Family History Reviewed.: Yes Medication/Allergy Home Medications: Aspirin [Aspirin EC] 81 mg PO DAILY 09/19/17 Carvedilol [Coreg] 25 mg PO Q12 09/19/17 Lisinopril [Prinivil 40 mg Tablet] 20 mg PO DAILY 09/19/17 Atorvastatin Calcium [Lipitor 80 mg Tablet] 80 mg PO QHS 11/30/19 Ezetimibe [Zetia 10 mg Tablet] 10 mg PO DAILY 11/30/19 Fluticasone/Vilanterol [Breo Ellipta 200-25 Mcg INH] 1 puff IH DAILY 01/01/20 Omeprazole 20 mg PO DAILY 11/30/19 Allergies/Adverse Reactions: No Known Allergies Allergy (Verified 09/19/17 15:06) Review of Systems Constitutional: ABSENT: chills, fever(s), headache(s), weight gain, weight loss Eyes: ABSENT: visual disturbances Ears: ABSENT: hearing changes Nose, Mouth, and Throat: ABSENT: headache(s), mouth pain, sore throat, vertigo Cardiovascular: ABSENT: chest pain, dyspnea on exertion, edema, orthropnea, palpitations Respiratory: ABSENT: cough, hemoptysis Gastrointestinal: PRESENT: abdominal pain - epigastric region. ABSENT: constipation, diarrhea, hematemesis, hematochezia, nausea, vomiting Genitourinary: ABSENT: dysuria, hematuria Musculoskeletal: ABSENT: joint swelling Integumentary: ABSENT: rash, wounds Neurological: ABSENT: abnormal gait, abnormal speech, confusion, dizziness, focal weakness, syncope Psychiatric: ABSENT: anxiety, depression, homidical ideation, suicidal ideation Endocrine: ABSENT: cold intolerance, heat intolerance, menstrual abnormalities, polydipsia, polyuria Hematologic/Lymphatic: ABSENT: easy bleeding, easy bruising, lymphadenopathy Allergic/Immunologic: ABSENT: seasonal rhinorrhea Physical Exam Vital Signs: Temp Pulse Resp BP Pulse Ox 98.9 F 58 L 16 139/71 H 97 11/30/19 12:08 11/30/19 12:58 11/30/19 12:58 11/30/19 12:08 11/30/19 12:58 Intake & Output 11/29/19 11/30/19 12/01/19 06:59 06:59 06:59 Weight 113.9 kg 111.6 kg General appearance: PRESENT: no acute distress, obese Head exam: PRESENT: atraumatic, normocephalic Eye exam: PRESENT: conjunctiva pink, EOMI, PERRLA. ABSENT: scleral icterus Ear exam: PRESENT: normal external ear exam Mouth exam: PRESENT: moist Neck exam: PRESENT: full ROM. ABSENT: carotid bruit, JVD, lymphadenopathy, thyromegaly Respiratory exam: PRESENT: clear to auscultation daniel Cardiovascular exam: PRESENT: RRR. ABSENT: diastolic murmur, rubs, systolic murmur Pulses: PRESENT: normal dorsalis pedis pul, +2 pedal pulses bilateral Vascular exam: ABSENT: pallor GI/Abdominal exam: PRESENT: normal bowel sounds, soft. ABSENT: distended, guarding, mass, organolmegaly, rebound, tenderness Rectal exam: PRESENT: deferred Extremities exam: ABSENT: pedal edema Musculoskeletal exam: PRESENT: normal inspection Neurological exam: PRESENT: alert, awake, oriented to person, oriented to place, oriented to time, oriented to situation, CN II-XII grossly intact. ABSENT: motor sensory deficit Psychiatric exam: PRESENT: appropriate affect, normal mood. ABSENT: homicidal ideation, suicidal ideation Skin exam: PRESENT: dry, warm Results Laboratory Results: 11/29/19 22:25 11/30/19 04:35 11/29/19 11/29/19 11/30/19 22:25 22:25 04:35 WBC 9.3 RBC 4.71 Hgb 12.1 L Hct 37.2 L MCV 79 L MCH 25.8 L MCHC 32.6 RDW 16.6 H Plt Count 202 Seg Neutrophils % 61.4 Sodium 143.8 144.2 Potassium 3.8 4.1 Chloride 102 106 Carbon Dioxide 35 H 33 H Anion Gap 7 5 BUN 12 11 Creatinine 1.28 H 1.14 Est GFR ( Amer) > 60 > 60 Glucose 146 H 99 Calcium 9.0 9.1 Total Bilirubin 0.3 0.3 AST 18 17 Alkaline Phosphatase 78 80 Total Protein 6.9 6.8 Albumin 3.6 3.6 11/29/19 11/29/19 11/30/19 22:25 22:25 04:35 Creatine Kinase 114 CK-MB (CK-2) Troponin I < 0.012 0.049 11/30/19 11/30/19 11:14 11:14 Creatine Kinase 125 CK-MB (CK-2) 1.50 Troponin I 0.047 Impressions: Chest X-Ray 11/29/19 22:52 IMPRESSION: No evidence of acute cardiopulmonary disease. Assessment & Plan - Diagnosis (1) Elevated troponin I level Is this a current diagnosis for this admission?: Yes Plan: See covering admitting attending physician orders for details about care plan. (2) Epigastric pain Is this a current diagnosis for this admission?: Yes Plan: See covering admitting attending physician orders for details about care plan. (4) S/P CABG (coronary artery bypass graft) Is this a current diagnosis for this admission?: Yes Plan: See covering admitting attending physician orders for details about care plan. (5) CAD (coronary artery disease), [place] coronary artery Qualifiers: [place] vs. transplanted heart: [place] heart Plan: See covering admitting attending physician orders for details about care plan. (6) HTN (hypertension) Qualifiers: Hypertension type: essential hypertension Qualified Code(s): I10 - Essential (primary) hypertension Is this a current diagnosis for this admission?: Yes Plan: See covering admitting attending physician orders for details about care plan. (7) HLD (hyperlipidemia) Qualifiers: Hyperlipidemia type: unspecified Qualified Code(s): E78.5 - Hyperlipidemia, unspecified Is this a current diagnosis for this admission?: Yes Plan: See covering admitting attending physician orders for details about care plan. (8) GERD (gastroesophageal reflux disease) Qualifiers: Esophagitis presence: esophagitis presence not specified Qualified Code(s): K21.9 - Gastro-esophageal reflux disease without esophagitis Is this a current diagnosis for this admission?: Yes Plan: See covering admitting attending physician orders for details about care plan. - Time Time Spent: 50 to 70 Minutes Medications reviewed and adjusted accordingly: Yes Anticipated discharge: Home Within: Other - Inpatient Certification Based on my medical assessment, after consideration of the patient's comorbidities, presenting symptoms, or acuity I expect that the services needed warrant INPATIENT care.: Yes I certify that my determination is in accordance with my understanding of [employer] 's requirements for reasonable and necessary INPATIENT services [42 CFR 412.3e].: Yes Medical Necessity: Significant Comorbidiites Make Outpatient Treatment Too Risky, Need Close Monitoring Due to Risk of Patient Decompensation, Need For IV Fluids, Need For Continuous Telemetry Monitoring, Need for Pain Control, Risk of Complication if Not Cared For in Hospital, Risk of Diagnosis Which Will Require Inpatient Eval/Care/Monitoring Post Hospital Care: 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
[2019-11-30] MEDS: LISINOPRIL 10 MG TABLET PO SCH (16:30)
--- NOTE | 2019-11-30 19:05 | PDOC CONSULTATION ---
Consultation-Blank Consultation: CARDIOLOGY CONSULTATION by Dr. Carlene Trent on 11/30/2019. Patient seen at 6:30 PM on 11/30/2019. 60 minutes spent with patient more than 50% of time spent in direct patient care. Reason for consultation: Patient with history of coronary artery disease prior NH and history of coronary bypass graft surgery admitted with prolonged epigastric pain. CONSULT REQUESTING PHYSICIAN: Dr. Noble. HISTORY OF PRESENT ILLNESS: Patient is a 64-year-old Afro-[place]ian male with known history of hypertension, history of coronary artery disease with remote history of myocardial infarction and history of PTCA of the right coronary artery prior to 2000. In 2000 the patient had another NH and had coronary artery bypass graft surgery x3 very and he had a BACH placed to the LAD, and reverse saphenous vein graft. Placed to the obtuse marginal 1 branch and is reverse saphenous vein graft to the distal right coronary artery. The patient had remained stable and his last stress test was done in 2018 in the middle months. And this was negative for ischemia, but there was evidence of inferior wall NH.. He also had an echo which showed normal LV ejection fraction. The patient states since the past few days off-and-on he has been having epigastric pressure-like pain with nausea and relief with drinking baking soda and water. The patient states that it starts off with the him eating greasy foods.. He this is not related to exertion. He states that he has these symptoms consistently when he takes fatty foods. Last night she had some fatty food and subsequently started having epigastric pain which is dull pressure-like sensation without radiation. It was associated with nausea. But there is no vo miting. There is no diaphoresis or shortness of breath. There was no radiation. The patient states he had taken some baking soda in water and by the time he came to the emergency room his pain was relieved after he belched. He states that consistently this pain is relieved by him belching. And the patient does give a history of fatty food intolerance. There is no shortness of breath. There is no diaphoresis no PND orthopnea or palpitations or near syncope or syncope. There is no cough wheezing or sputum production. He states in the past he has been worked up for obstructive sleep apnea and had a negative sleep study. He has no history of asthma or COPD. Past Medical History Cardiac Medical History: Reports: Myocardial Infarction, Hyperlipidema, Hypertension Pulmonary Medical History: Reports: None EENT Medical History: Reports: None Neurological Medical History: Reports: None Endocrine Medical History: Reports: Other - boderline dm Renal/ Medical History: Reports: None Malignancy Medical History: Reports: None GI Medical History: Reports: Gastroesophageal Reflux Disease Musculoskeltal Medical History: Reports: None Skin Medical History: Reports: None Psychiatric Medical History: Reports: None Traumatic Medical History: Reports: None Infectious Medical History: Reports: None Past Surgical History Past Surgical History: Reports: Coronary Artery Bypass Graft Social History Smoking Status: Never Smoker Drugs: None There is no history of EtOH abuse. - Advance Directive Resuscitation Status: Full Code. His is his surrogate healthcare decision maker. Family History Family History: Reviewed & Not Pertinent Parental Family History Reviewed: Yes Children Family History Reviewed: Yes Sibling(s) Family History Reviewed.: Yes Medication/Allergy Home Medications: Aspirin [Aspirin EC] 81 mg PO DAILY 09/19/17 Carvedilol [Coreg] 25 mg PO Q12 09/19/17 Lisinopril [Prinivil 40 mg Tablet] 20 mg PO DAILY 09/19/17 Atorvastatin Calcium [Lipitor 80 mg Tablet] 80 mg PO QHS 11/30/19 Ezetimibe [Zetia 10 mg Tablet] 10 mg PO DAILY 11/30/19 Fluticasone/Vilanterol [Breo Ellipta 200-25 Mcg INH] 1 puff IH DAILY 11/30/19 Omeprazole 20 mg PO DAILY 11/30/19 Allergies/Adverse Reactions: No Known Allergies Allergy (Verified 09/19/17 15:06) Current Medications Generic Name Dose Route Start Last Admin Trade Name Freq PRN Reason Stop Dose Admin Albuterol/Ipratropium 3 ml 11/30/19 10:45 Duoneb 3 Ml Ampul NEB 12/30/19 10:44 [id number] PRN SHORTNESS OF BREATH Aspirin 81 mg 11/30/19 12:00 11/30/19 13:16 Ecotrin 81 Mg Ec Tablet PO 12/30/19 11:59 81 mg DAILY MICHAEL Administration Atorvastatin Calcium 80 mg 11/30/19 22:00 Lipitor 80 Mg Tablet PO 12/30/19 21:59 QHS MICHAEL Carvedilol 25 mg 11/30/19 22:00 Coreg 12.5 Mg Tablet PO 12/30/19 21:59 Q12 MICHAEL Ezetimibe 10 mg 12/01/19 10:00 Zetia 10 Mg Tablet PO 12/31/19 09:59 DAILY [facility] Enoxaparin Sodium 40 mg 11/30/19 12:00 11/30/19 13:16 Lovenox Inj 40 Mg/0.4 Ml Disp.Syrin SUBCUT 12/30/19 11:59 40 mg DAILY MICHAEL Administration Fluticasone/Vilanterol 1 inh 12/01/19 10:00 Breo 200-25 Mcg Ellipta 14 Dose/Dpi IH 12/31/19 09:59 DAILY MICHAEL Lisinopril 20 mg 11/30/19 16:00 11/30/19 16:30 Prinivil 10 Mg Tablet PO 12/30/19 15:59 20 mg DAILY MICHAEL Administration Nitroglycerin 1 tab 11/30/19 10:42 Nitrostat 0.4 Mg (1/150 Gr) Tabs 25/Bottle SL 12/30/19 10:41 Q5MP PRN FOR CHEST PAIN Pantoprazole Sodium 40 mg 11/30/19 12:00 11/30/19 13:[address] Tablet PO 12/30/19 11:59 40 mg Q6AM MICHAEL Administration Discontinued Medications Generic Name Dose Route Start Last Admin Trade Name Freq PRN Reason Stop Dose Admin Aspirin 243 mg 11/29/19 22:52 11/29/19 22:55 Aspirin 81 Mg Chewable Tablet PO 11/29/19 22:53 243 mg NOW ONE Administration Nitroglycerin 0.5 gm 11/30/19 05:33 11/30/19 06:12 Nitrol 2% Ointment 1gm Packet TP 11/30/19 05:34 0.5 gm NOW ONE Administration Review of Systems Constitutional: ABSENT: chills, fever(s), headache(s), weight gain, weight loss Eyes: ABSENT: visual disturbances Ears: ABSENT: hearing changes Nose, Mouth, and Throat: ABSENT: headache(s), mouth pain, sore throat, vertigo Cardiovascular: ABSENT: chest pain, dyspnea on exertion, edema, orthropnea, palpitations Respiratory: ABSENT: cough, hemoptysis Gastrointestinal: PRESENT: abdominal pain - epigastric region. He has a history of fatty food intolerance. ABSENT: constipation, diarrhea, hematemesis, hematochezia, nausea, vomiting Genitourinary: ABSENT: dysuria, hematuria Musculoskeletal: ABSENT: joint swelling Integumentary: ABSENT: rash, wounds Neurological: ABSENT: abnormal gait, abnormal speech, confusion, dizziness, focal weakness, syncope Psychiatric: ABSENT: anxiety, depression, homidical ideation, suicidal ideation Endocrine: ABSENT: cold intolerance, heat intolerance, menstrual abnormalities, polydipsia, polyuria Hematologic/Lymphatic: ABSENT: easy bleeding, easy bruising, lymphadenopathy Allergic/Immunologic: ABSENT: seasonal rhinorrhea PHYSICAL EXAMINATION: The patient is moderately obese. At present in no acute distress. At present no chest pain and no tenderness in the epigastric region and no epigastric pain. Selected Entries 11/30/19 19:39 Temperature 98.2 F Temperature Oral Source Pulse Rate 55 L Respiratory 18 Rate Blood Pressure 127/64 H Blood Pressure 85 Mean BP Location Left Arm BP Position Supine O2 Sat by Pulse 99 Oximetry Oxygen Delivery Room Air Method Head: Is is atraumatic and normocephalic. EYES: Pupils equal round regular reactive to light accommodation. Extraocular movements are normal. There is no conjunctival pallor. There is no scleral icterus. Ears: Tympanic memories are intact. External auditory canals are clear. NOSE: There is no deviated nasal septum. There is no inflammation of the nasal mucous membrane. NOSE: There is no deviated nasal septum. There is no inflammation nasal mucous membrane. MOUTH: There is no ulcers in the mouth. There is no bleeding from the gums. THROAT: There is no redness of the oropharynx. There is no exudates. SKIN: There is no skin rashes or skin lesions. There is no petechia or ecchymosis. NECK: Supple. There is no JVD. Carotids are equal there is no bruit. There is no lymphadenopathy. There is no goiter. There is no accessory muscle respiration use. Trachea central. LUNGS: Is clear to auscultation percussion without any rhonchi rales wheezing. On follow-up palpation there is no chest wall tenderness. HEART: S1-S2 is heard. There is no S3 gallop. There is no S4 gallop. There is systolic murmur left sternal border and the apex there is no rub. ABDOMEN: Is obese. Nontender. There is no hepatosplenomegaly. Bowel sounds are well heard. There is no tenderness or rebound guarding or rigidity. EXTREMITIES: Femorals are deep from. Femorals are slightly diminished. There is no femoral bruits. Leg pulses are well felt. There is no pedal edema. There is no DVT or cellulitis. There is no calf tenderness. There is no cyanosis or clubbing. RESTORATION SILVERSMITH: The patient is conscious awake alert oriented x3 with no focal deficits. PSYCHIATRIC: The patient judgment insight are intact his affect is normal. The patient is EKG: [11/29/2019]: Shows sinus rhythm old inferior wall myocardial infarction. Right bundle branch block pattern and left posterior lucio-block pattern. No acute changes. THE patient is EKG on 11/30/2019 shows: Sinus rhythm right bundle branch block pattern and left posterior hemiblock. Ventricular trigeminy. Labs- Entire Visit 11/29/19 11/29/19 11/29/19 22:25 22:25 22:25 WBC 9.3 RBC 4.71 Hgb 12.1 L Hct 37.2 L MCV 79 L MCH 25.8 L MCHC 32.6 RDW 16.6 H Plt Count 202 Lymph % (Auto) 28.3 Knott % (Auto) 8.1 Eos % (Auto) 1.5 Baso % (Auto) 0.7 Absolute Neuts (auto) 5.7 Absolute Lymphs (auto) 2.6 Absolute Monos (auto) 0.8 Absolute Eos (auto) 0.1 Absolute Basos (auto) 0.1 Seg Neutrophils % 61.4 Sodium 143.8 Potassium 3.8 Chloride 102 Carbon Dioxide 35 H Anion Gap 7 BUN 12 Creatinine 1.28 H Est GFR ( Amer) > 60 Est GFR (MDRD) Non-Af 56 L Glucose 146 H Calcium 9.0 Total Bilirubin 0.3 Direct Bilirubin 0.3 Neonat Total Bilirubin Not Reportable Neonat Direct Bilirubin Not Reportable Neonat Indirect Bili Not Reportable AST 18 ALT 15 Alkaline Phosphatase 78 Creatine Kinase 114 CK-MB (CK-2) Troponin I < 0.012 Total Protein 6.9 Albumin 3.6 11/30/19 11/30/19 11/30/19 04:35 04:35 11:14 WBC RBC Hgb Hct MCV MCH MCHC RDW Plt Count Lymph % (Auto) Knott % (Auto) Eos % (Auto) Baso % (Auto) Absolute Neuts (auto) Absolute Lymphs (auto) Absolute Monos (auto) Absolute Eos (auto) Absolute Basos (auto) Seg Neutrophils % Sodium 144.2 Potassium 4.1 Chloride 106 Carbon Dioxide 33 H Anion Gap 5 BUN 11 Creatinine 1.14 Est GFR ( Amer) > 60 Est GFR (MDRD) Non-Af > 60 Glucose 99 Calcium 9.1 Total Bilirubin 0.3 Direct Bilirubin 0.2 Neonat Total Bilirubin Not Reportable Neonat Direct Bilirubin Not Reportable Neonat Indirect Bili Not Reportable AST 17 ALT 14 Alkaline Phosphatase 80 Creatine Kinase 125 CK-MB (CK-2) Troponin I 0.049 Total Protein 6.8 Albumin 3.6 11/30/19 11/30/19 11/30/19 11:14 18:03 18:03 WBC RBC Hgb Hct MCV MCH MCHC RDW Plt Count Lymph % (Auto) Knott % (Auto) Eos % (Auto) Baso % (Auto) Absolute Neuts (auto) Absolute Lymphs (auto) Absolute Monos (auto) Absolute Eos (auto) Absolute Basos (auto) Seg Neutrophils % Sodium Potassium Chloride Carbon Dioxide Anion Gap BUN Creatinine Est GFR ( Amer) Est GFR (MDRD) Non-Af Glucose Calcium Total Bilirubin Direct Bilirubin Neonat Total Bilirubin Neonat Direct Bilirubin Neonat Indirect Bili AST ALT Alkaline Phosphatase Creatine Kinase 122 CK-MB (CK-2) 1.50 1.44 Troponin I 0.047 0.052 Total Protein Albumin Chest X-Ray 11/29/19 22:52 IMPRESSION: No evidence of acute cardiopulmonary disease. IMPRESSION/RECOMMENDATION: 1. Epigastric pain atypical sounds more GI. Will get ultrasound of the abdomen to make sure the patient does not have gallbladder disease. He does give a history of GERD. Note the patient's 2 EKG does not have any acute changes. And troponins are indeterminate. 2. Coronary artery disease: Prior history of myocardial infarction. History of PTCA of right coronary artery followed by history of myocardial infarction again recurrent with coronary artery bypass graft surgery x3 vessels as mentioned earlier. His last stress test done in June 2018 showed old inferior wall NH but no reversible ischemia. His LV ejection fraction was normal by echocardiogram. Prior to his coronary artery bypass Surgery in 2000 his LV ejection fraction was 35 to 40% with three-vessel disease. The patient's LV ejection fraction has improved after bypass. Continue current anti-anginal treatment. 3. Hypertension: Blood pressure well controlled. 4. History of GERD. 5. SYSTOLIC MURMUR: Seems to be of mitral regurgitation.? Significance. Will get an outpatient echo. 6. Hyperlipidemia: Continue statin. Medications reviewed. Medical regimen and management plan discussed with attending physician. Ultrasound of the abdomen ordered. Medical decision making is of moderate to high complexity. 60 minutes spent as patient more than 50% time spent in direct patient care. Will follow.
[2019-11-30 19:48] LABS: CREATINE KINASE MB 1.44 ng/mL (<4.55)
[2019-11-30 20:09] LABS: TROPONIN I 0.052 ng/mL
[2019-11-30] MEDS: ATORVASTATIN CALCIUM 80 MG TABLET PO SCH (21:52)
[2019-11-30] MEDS: CARVEDILOL 12.5 MG TABLET PO SCH (21:52)
[2019-12-01 01:09] LABS: CREATINE KINASE MB 1.65 ng/mL (<4.55); TROPONIN I 0.04 ng/mL
[2019-12-01] MEDS: PANTOPRAZOLE SODIUM 40 MG TABLET.DR PO SCH ×3 (06:18→17:32)
--- NOTE | 2019-12-01 09:20 | PDOC PROGRESS REPORT ---
Subjective Progress Note for:: 12/01/19 Subjective:: Patient was admitted for the epigastric pains still having some on and off pain in the abdominal area but no chest pain no short of breath Patient's was seen by the cardiology Reason For Visit: EPIGASTRIC PAIN R/O ACS Physical Exam Vital Signs: Temp Pulse Resp BP Pulse Ox 98.2 F 50 L 18 154/71 H 99 12/01/19 07:17 12/01/19 07:17 12/01/19 07:17 12/01/19 07:17 12/01/19 07:17 Intake & Output 11/30/19 12/01/19 12/02/19 06:59 06:59 06:59 Intake Total 920 Balance 920 Weight 113.9 kg 111.6 kg General appearance: PRESENT: no acute distress, well-developed, well-nourished Head exam: PRESENT: atraumatic, normocephalic Eye exam: PRESENT: conjunctiva pink, EOMI, PERRLA. ABSENT: scleral icterus Ear exam: PRESENT: normal external ear exam Mouth exam: PRESENT: moist, tongue midline Neck exam: PRESENT: full ROM. ABSENT: carotid bruit, JVD, lymphadenopathy, thyromegaly Respiratory exam: PRESENT: clear to auscultation daniel Cardiovascular exam: PRESENT: RRR. ABSENT: diastolic murmur, rubs, systolic murmur Pulses: PRESENT: normal dorsalis pedis pul, +2 pedal pulses bilateral Vascular exam: PRESENT: normal capillary refill GI/Abdominal exam: PRESENT: normal bowel sounds, soft. ABSENT: distended, guarding, mass, organolmegaly, rebound, tenderness Rectal exam: PRESENT: deferred Musculoskeletal exam: PRESENT: ambulatory Neurological exam: PRESENT: alert, awake, oriented to person, oriented to place, oriented to time, oriented to situation, CN II-XII grossly intact. ABSENT: mo tor sensory deficit Psychiatric exam: PRESENT: appropriate affect, normal mood. ABSENT: homicidal ideation, suicidal ideation Skin exam: PRESENT: dry, intact, warm. ABSENT: cyanosis, rash Results Laboratory Results: 11/29/19 22:25 11/30/19 04:35 11/29/19 11/29/19 11/30/19 22:25 22:25 04:35 Creatine Kinase 114 CK-MB (CK-2) Troponin I < 0.012 0.049 11/30/19 11/30/19 11/30/19 11:14 11:14 18:03 Creatine Kinase 125 122 CK-MB (CK-2) 1.50 Troponin I 0.047 11/30/19 12/01/19 12/01/19 18:03 00:32 00:32 Creatine Kinase 137 CK-MB (CK-2) 1.44 1.65 Troponin I 0.052 0.040 Impressions: Chest X-Ray 11/29/19 22:52 IMPRESSION: No evidence of acute cardiopulmonary disease. Assessment & Plan - Diagnosis (1) CAD (coronary artery disease), [place] coronary artery Qualifiers: [place] vs. transplanted heart: [place] heart Is this a current diagnosis for this admission?: Yes Plan: Follow-up with the cardiology (2) Chest pain Qualifiers: Chest pain type: unspecified Qualified Code(s): R07.9 - Chest pain, unspe cified Is this a current diagnosis for this admission?: Yes Plan: No sign of any acute coronary syndromes (3) Epigastric pain Is this a current diagnosis for this admission?: Yes Plan: Continues to PPI get the ultrasound of the abdomen (4) HLD (hyperlipidemia) Qualifiers: Hyperlipidemia type: unspecified Qualified Code(s): E78.5 - Hyperlipidemia, unspecified Is this a current diagnosis for this admission?: Yes (5) HTN (hypertension) Qualifiers: Hypertension type: essential hypertension Qualified Code(s): I10 - Essential (primary) hypertension Is this a current diagnosis for this admission?: Yes - Time Time Spent with patient: 15-24 minutes Level of Care: IMCU Medications reviewed and adjusted accordingly: Yes Anticipated discharge: Home Within: within 24 hours - Plan Summary Plan Summary: We will get the ultrasound of the abdomen increase the PPI
--- NOTE | 2019-12-01 09:26 | RADIOLOGY REPORT (SQ) ---
EXAM DESCRIPTION: U/S ABDOMEN COMPLETE W/O DOP COMPLETED DATE/TIME: 12/01/2019 6:03 am REASON FOR STUDY: Eppigastric Pain and Nausea. R10.13 EPIGASTRIC PAIN COMPARISON: None. TECHNIQUE: Dynamic and static grayscale images acquired of the abdomen and recorded on PACS. Additio nal selected color Doppler and spectral images recorded. Note: Exam does not meet criteria for a complete duplex/doppler study LIMITATIONS: Study limited due to acoustical interference from fat or from air in the bowel. FINDINGS: PANCREAS: Poorly seen secondary to acoustical interference from fat or from air in the bow el. No visualized masses. Duct normal caliber as seen. LIVER: Echotexture is coarse with increased echogenicity consistent with fatty infiltration. LIVER VASCULATURE: Normal directional flow of the main portal vein and hepatic veins. GALLBLADDER: No stones. Normal wall thickness. No pericholecystic fluid. ULTRASOUND-DETECTED GUIDO'S SIGN: Negative. INTRAHEPATIC DUCTS AND COMMON DUCT: CBD and intrahepatic ducts normal caliber. No filling defects. INFERIOR VENA CAVA: Normal flow. AORTA: No aneurysm. RIGHT KIDNEY: Normal size. Normal echogenicity. No solid or suspicious masses. No hydronephros is. No calcifications. LEFT KIDNEY: Normal size. Normal echogenicity. No solid or suspicious masses. No hydronephrosi s. No calcifications. SPLEEN:Normal size. No solid masses. PERITONEAL AND PLEURAL SPACES: No ascites or effusions. OTHER: No other significant finding. IMPRESSION: FATTY INFILTRATION OF THE LIVER. NO OTHER SIGNIFICANT FINDING IN THE VISUALIZED ABDOMEN. TECHNICAL DOCUMENTATION: JOB ID: [id number] [employer]- All Rights Reserved Reading location - IP/workstation name: [email or web address]
[2019-12-01] MEDS: CARVEDILOL 12.5 MG TABLET PO SCH ×2 (11:12→21:30)
[2019-12-01] MEDS: EZETIMIBE 10 MG TABLET PO SCH (11:16)
[2019-12-01] MEDS: ASPIRIN 81 MG TABLET, ENT COATED PO SCH (11:17)
[2019-12-01] MEDS: LISINOPRIL 10 MG TABLET PO SCH (11:17)
[2019-12-01] MEDS: ISOSORBIDE MONONITRATE 60 MG TAB.ER.24H PO SCH (11:17)
[2019-12-01] MEDS: ENOXAPARIN SODIUM INJ 40 MG/0.4 ML DISP.SYRIN SUBCUT SCH (11:18)
[2019-12-01] MEDS: FLUTICASONE/VILANTEROL 200-25 MCG/DOSE IH SCH (11:19)
--- NOTE | 2019-12-01 15:49 | RADIOLOGY REPORT (SQ) ---
EXAM DESCRIPTION: CT ABD/PELVIS WITH IV ORAL COMPLETED DATE/TIME: 12/01/2019 2:58 pm REASON FOR STUDY: abd pain R10.13 EPIGASTRIC PAIN COMPARISON: None. TECHNIQUE: CT scan of the abdomen and pelvis performed with intravenous and oral contrast using kemar ruperto scanning technique with dynamic intravenous contrast injection. Images reviewed with lung, soft t issue, and bone windows. Reconstructed coronal and sagittal MPR images reviewed. Delayed images for e valuation of the urinary system also acquired. All images stored on PACS. All CT scanners at this facility use dose modulation, iterative reconstruction, and/or weight based d osing when appropriate to reduce radiation dose to as low as reasonably achievable (ALARA). [facility]: Dose Right [facility]: CareDose [facility]: Dose Right [facility]: Teradose 4D [facility]: Twelixir CONTRAST TYPE AND DOSE: contrast/concentration: Isovue 350.00 mg/ml; Total Contrast Delivered: 100.0 ml; Total Saline Delivered: 44.3 ml RENAL FUNCTION: GFR > 60. RADIATION DOSE: CT Rad equipment meets quality standard of care and radiation dose reduction techniq ues were employed. CTDIvol: 16.2 - 16.2 mGy. DLP: 1854 mGy-cm. . LIMITATIONS: None. FINDINGS: LOWER CHEST: No significant findings. No nodules or infiltrates. LIVER: Normal size. No masses. No dilated ducts. SPLEEN: Normal size. No focal lesions. PANCREAS: No masses. No significant calcifications. No adjacent inflammation or peripancreatic fluid collections. Pancreatic duct not dilated. GALLBLADDER: No identified stones by CT criteria. No inflammatory changes to suggest cholecystitis. ADRENAL GLANDS: No significant masses or asymmetry. RIGHT KIDNEY AND URETER: No solid masses. No significant calcifications. No hydronephrosis or hyd roureter. LEFT KIDNEY AND URETER: No solid masses. No significant calcifications. No hydronephrosis or hydr oureter. AORTA AND VESSELS: No aneurysm. RETROPERITONEUM: No retroperitoneal adenopathy, hemorrhage or masses. BOWEL AND PERITONEAL CAVITY: No obstruction. No visualized masses. No free fluid. No inflammatory ch anges or thickening of bowel wall. APPENDIX: Normal. PELVIS: No significant masses. Normal bladder. No free fluid. ABDOMINAL WALL: Small fat containing umbilical hernia. BONES: No significant or acute findings. OTHER: No other significant finding. IMPRESSION: No acute findings. TECHNICAL DOCUMENTATION: JOB ID: [id number] Quality ID # [id number]: Final reports with documentation of one or more dose reduction techniques (e.g., Au tomated exposure control, adjustment of the mA and/or kV according to patient size, use of iterative reconstruction technique) 2010 [employer]- All Rights Reserved Reading location - IP/workstation name: [email or web address]-
--- NOTE | 2019-12-01 19:15 | Progress Note ---
Provider Note Provider Note: CARDIOLOGY PROGRESS NOTE by Dr. Carlene Trent on 12/01/2019. SUBJECTIVE: The patient has no further epigastric or lower chest very burning. Is abdominal ultrasound is negative for gallstones. His abdominal CT shows no acute findings. The patient has no further chest pain or discomfort. There is no shortness of breath. There is no PND orthopnea or leg edema. There is no palpitations. There is no TIA CVA symptoms. There is no atrial or ventricular arrhythmia seen on the monitor. PHYSICAL EXAMINATION: The patient is moderately obese in no acute distress. Selected Entries 12/01/19 16:46 Temperature 98.2 F Temperature Oral Source Pulse Rate 58 L Respiratory 17 Rate Blood Pressure 130/66 H Blood Pressure 87 Mean BP Location Left Arm BP Position Supine O2 Sat by Pulse 100 Oximetry Oxygen Delivery Room Air Method Head: Is is atraumatic and normocephalic. EYES: Pupils equal round regular reactive to light accommodation. Extraocular movements are normal. There is no conjunctival pallor. There is no scleral icterus. Ears: Tympanic memories are intact. External auditory canals are clear. NOSE: There is no deviated nasal septum. There is no inflammation of the nasal mucous membrane. NOSE: There is no deviated nasal septum. There is no inflammation nasal mucous membrane. MOUTH: There is no ulcers in the mouth. There is no bleeding from the gums. THROAT: There is no redness of the oropharynx. There is no exudates. SKIN: There is no skin rashes or skin lesions. There is no petechia or ecchymosis. NECK: Supple. There is no JVD. Carotids are equal there is no bruit. There is no lymphadenopathy. There is no goiter. There is no accessory muscle respiration use. Trachea central. LUNGS: Is clear to auscultation percussion without any rhonchi rales wheezing. On follow-up palpation there is no chest wall tenderness. HEART: S1-S2 is heard. There is no S3 gallop. There is no S4 gallop. There is systolic murmur left sternal border and the apex there is no rub. There is systolic murmur heard at the apex radiates to the left axilla. This seems to be mitral regurgitation murmur.? Significance.? Severity. ABDOMEN: Is obese. Nontender. There is no hepatosplenomegaly. Bowel sounds are well heard. There is no tenderness or rebound guarding or rigidity. EXTREMITIES: Femorals are deep from. Femorals are slightly diminished. There is no femoral bruits. Leg pulses are well felt. There is no pedal edema. There is no DVT or cellulitis. There is no calf tenderness. There is no cyanosis or clubbing. 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 PSYCHIATRIC: The patient judgment insight are intact his affect is normal. IMPRESSION/RECOMMENDATION: 1. Epigastric pain atypical sounds more GI. He does give a history of GERD. Note the patient's 2 EKG does not have any acute changes. And troponins are indeterminate. And in fact are coming down. There is no evidence of acute coronary syndrome. He is abdominal ultrasound and his abdominal CT are negative. 2. Coronary artery disease: Prior history of myocardial infarction. History of PTCA of right coronary artery followed by history of myocardial infarction again recurrent with coronary artery bypass graft surgery x3 vessels as mentioned earlier. His last stress test done in June 2018 showed old inferior wall [place] but no reversible ischemia. His LV ejection fraction was normal by echocardiogram. Prior to his coronary artery bypass Surgery in 2000 his LV ejection fraction was 35 to 40% with three-vessel disease. The patient's LV ejection fraction has improved after bypass. Continue current anti-anginal treatment. Will increase the patient's isosorbide mononitrate to 60 mg p.o. daily. This has been discussed with the patient. Also will get an outpatient IV Lexiscan Cardiolite stress test and an echocardiogram as mentioned earlier. 3. Hypertension: Blood pressure well controlled. 4. History of GERD. 5. SYSTOLIC MURMUR: Seems to be of mitral regurgitation.? Severity. Mentioned earlier will get an outpatient echocardiogram. 6. Hyperlipidemia: Continue statin. Medications reviewed. Medical medications adjusted. Medical regimen and management plan discussed with Dr. Milner. Medical decision making is of moderate complexity. 40 minutes spent as patient more than 50% of time spent in direct patient care. Will get an outpatient IV Lexiscan Cardiolite stress test and echocardiogram in the office. Cardiac status is stable. Will sign off. This has been discussed with Dr. Milner.
[2019-12-01] MEDS: ATORVASTATIN CALCIUM 80 MG TABLET PO SCH (21:30)
[2019-12-02 05:27] LABS: ABSOLUTE EOSINOPHILS # (AUTO) 0.2 10^3/uL (0.0-0.6); ABSOLUTE LYMPHOCYTES (AUTO) 1.7 10^3/uL (0.5-4.7); ABSOLUTE NEUT (AUTO) 4.6 10^3/uL (1.7-8.2); BASOPHILS % (AUTO) 0.5 % (0-2); EOSINOPHILS % (AUTO) 3.2 % (0-6); HEMATOCRIT 35.3 % (37.9-51.0); HEMOGLOBIN 11.9 g/dL (13.5-17.0); LYMPHOCYTES % (AUTO) 22.2 % (13-45); MEAN CORPUSCULAR HGB CONC 33.5 g/dL (32.0-36.0); MEAN CORPUSCULAR VOLUME 78 fl (80-97); MONOCYTES % (AUTO) 12.9 % (3-13); PLATELET COUNT 185 10^3/uL (150-450); RED BLOOD COUNT 4.56 10^6/uL (4.35-5.55); RED CELL DISTRIBUTION WIDTH 16.6 % (11.5-14.0); SEGMENTED NEUTROPHILS % (AUTO) 61.2 % (42-78); TOTAL CELLS COUNTED % (AUTO) 100 %; WHITE BLOOD COUNT 7.5 10^3/uL (4.0-10.5)
[2019-12-02 05:33] LABS: ALBUMIN 3.3 g/dL (3.5-5.0); ALKALINE PHOSPHATASE 74 U/L (38-126); ANION GAP 7 (5-19); ASPARTATE AMINO TRANSFERASE 21 U/L (17-59); BILIRUBIN,DIRECT 0.3 mg/dL (0.0-0.4); BILIRUBIN,TOTAL 0.5 mg/dL (0.2-1.3); BLOOD UREA NITROGEN 9 mg/dL (7-20); CALCIUM 9.1 mg/dL (8.4-10.2); CARBON DIOXIDE 28 mmol/L (22-30); CHLORIDE 106 mmol/L (98-107); GLUCOSE 118 mg/dL (75-110); POTASSIUM 4.1 mmol/L (3.6-5.0); TOTAL PROTEIN 6.6 g/dL (6.3-8.2)
--- NOTE | 2019-12-02 09:18 | PDOC DISCHARGE SUMMARY ---
Impression - Admit/DC Date/PCP Admission Date/Primary Care Provider: 11/30/19 05:45 MERLYN MIRELES MD Discharge Date: 12/02/19 - Discharge Diagnosis (1) CAD (coronary artery disease), [place] coronary artery Is this a current diagnosis for this admission?: Yes (2) Chest pain Is this a current diagnosis for this admission?: Yes (3) Epigastric pain Is this a current diagnosis for this admission?: Yes (4) HLD (hyperlipidemia) Is this a current diagnosis for this admission?: Yes (5) HTN (hypertension) Is this a current diagnosis for this admission?: Yes - Additional Information Resuscitation Status: Full Code Discharge Diet: Cardiac Discharge Activity: Activity As Tolerated Referrals: MERLYN MIRELES MD [Primary Care Provider] - Follow up as needed (f/u with dr chowdhury f/u with dr serrano ) Prescriptions: Carvedilol [Coreg 12.5 mg Tablet] 12.5 mg PO Q12 #60 tablet Pantoprazole Sodium [Protonix [address] Tablet] 40 mg PO DAILY #30 tablet. Home Medications: Aspirin [Aspirin EC] 81 mg PO DAILY 09/19/17 Atorvastatin Calcium [Lipitor 80 mg Tablet] 80 mg PO QHS 11/30/19 Ezetimibe [Zetia 10 mg Tablet] 10 mg PO DAILY 11/30/19 Fluticasone/Vilanterol [Breo Ellipta 200-25 Mcg INH] 1 puff IH DAILY 11/30/19 Carvedilol [Coreg 12.5 mg Tablet] 12.5 mg PO Q12 #60 tablet 12/02/19 Lisinopril [Prinivil 40 mg Tablet] 40 mg PO DAILY #30 12/02/19 Pantoprazole Sodium [Protonix [address] Tablet] 40 mg PO DAILY #30 tablet. 12/02/19 History of Present Illiness History of Present Illness: MAXINE CARR is a 64 year old male Patient was admitted in the hospital for the chest pain epigastric pains and rule out acute coronary syndrome because of underlying coronary artery disease Hospital Course Hospital Course: This is a 64-year-old male admitting in the hospital for the chest pain epigastric pains to rule out acute coronary syndrome due to the underlying coronary artery disease hypertension hyperlipidemia patient initial cardiac enzyme was all stable no EKG change patient seen by the cardiology have a echocardiogram done Was all stable Patient also underwent for the ultrasound of the abdomen and a CT abdomen and pelvis which no acute finding Most likely epigastric pain GI related start the patient on a PPI patients feel better patients does not have any chest pain no short of breath does not have any abdominal pain Heart rate was running low under 55 range and discussed with the Dr. Trent reduce the carvedilol dose from 25 mg to half tablet twice a day Patient's also make appointment with GI Dr. Fuller as outpatients for endoscopy She is otherwise walking the hallway without any problems does not have any symptoms His p.o. intake is good Expressed to go home Discuss the cardiology and suggest to follow outpatient stress test Physical Exam Vital Signs: Temp Pulse Resp BP Pulse Ox 98.7 F 70 17 130/79 H 97 12/02/19 08:20 12/02/19 08:20 12/02/19 08:20 12/02/19 08:20 12/02/19 08:20 Intake & Output 12/01/19 12/02/19 12/03/19 06:59 06:59 06:59 Intake Total 920 340 Balance 920 340 Weight 111.6 kg General appearance: PRESENT: no acute distress, well-developed, well-nourished Head exam: PRESENT: atraumatic, normocephalic Eye exam: PRESENT: conjunctiva pink, EOMI, PERRLA. ABSENT: scleral icterus Ear exam: PRESENT: normal external ear exam Mouth exam: PRESENT: moist, tongue midline Neck exam: ABSENT: carotid bruit, JVD, lymphadenopathy, thyromegaly Respiratory exam: PRESENT: clear to auscultation daniel. ABSENT: rales, rhonchi, wheezes Cardiovascular exam: PRESENT: RRR. ABSENT: diastolic murmur, rubs, systolic murmur Pulses: PRESENT: normal dorsalis pedis pul Vascular exam: PRESENT: normal capillary refill GI/Abdominal exam: PRESENT: normal bowel sounds, soft. ABSENT: distended, guarding, mass, organolmegaly, rebound, tenderness Rectal exam: PRESENT: deferred Extremities exam: PRESENT: full ROM. ABSENT: calf tenderness, clubbing, pedal edema Neurological exam: PRESENT: alert, awake, oriented to person, oriented to place, oriented to time, oriented to situation, CN II-XII grossly intact. ABSENT: motor sensory deficit Psychiatric exam: PRESENT: appropriate affect, normal mood. ABSENT: homicidal ideation, suicidal ideation Skin exam: PRESENT: dry, intact, warm. ABSENT: cyanosis, rash Results Laboratory Results: WBC 7.5 10^3/uL (4.0-10.5) 12/02/19 04:54 RBC 4.56 10^6/uL (4.35-5.55) 12/02/19 04:54 Hgb 11.9 g/dL (13.5-17.0) L 12/02/19 04:54 Hct 35.3 % (37.9-51.0) L 12/02/19 04:54 MCV 78 fl (80-97) L 12/02/19 04:54 MCH 26.0 pg (27.0-33.4) L 12/02/19 04:54 MCHC 33.5 g/dL (32.0-36.0) 12/02/19 04:54 RDW 16.6 % (11.5-14.0) H 12/02/19 04:54 Plt Count 185 10^3/uL (150-450) 12/02/19 04:54 Lymph % (Auto) 22.2 % (13-45) 12/02/19 04:54 [place] % (Auto) 12.9 % (3-13) 12/02/19 04:54 Eos % (Auto) 3.2 % (0-6) 12/02/19 04:54 Baso % (Auto) 0.5 % (0-2) 12/02/19 04:54 Absolute Neuts (auto) 4.6 10^3/uL (1.7-8.2) 12/02/19 04:54 Absolute Lymphs (auto) 1.7 10^3/uL (0.5-4.7) 12/02/19 04:54 Absolute Monos (auto) 1.0 10^3/uL (0.1-1.4) 12/02/19 04:54 Absolute Eos (auto) 0.2 10^3/uL (0.0-0.6) 12/02/19 04:54 Absolute Basos (auto) 0.0 10^3/uL (0.0-0.2) 12/02/19 04:54 Seg Neutrophils % 61.2 % (42-78) 12/02/19 04:54 Sodium 140.5 mmol/L (137-145) 12/02/19 04:54 Potassium 4.1 mmol/L (3.6-5.0) 12/02/19 04:54 Chloride 106 mmol/L (98-107) 12/02/19 04:54 Carbon Dioxide 28 mmol/L (22-30) 12/02/19 04:54 Anion Gap 7 (5-19) 12/02/19 04:54 BUN 9 mg/dL (7-20) 12/02/19 04:54 Creatinine 1.14 mg/dL (0.52-1.25) 12/02/19 04:54 Est GFR ( Amer) > 60 (>60) 12/02/19 04:54 Est GFR (MDRD) Non-Af > 60 (>60) 12/02/19 04:54 Glucose 118 mg/dL (75-110) H 12/02/19 04:54 Calcium 9.1 mg/dL (8.4-10.2) 12/02/19 04:54 Total Bilirubin 0.5 mg/dL (0.2-1.3) 12/02/19 04:54 Direct Bilirubin 0.3 mg/dL (0.0-0.4) 12/02/19 04:54 Neonat Total Bilirubin Not Reportable 12/02/19 04:54 Neonat Direct Bilirubin Not Reportable 12/02/19 04:54 Neonat Indirect Bili Not Reportable 12/02/19 04:54 AST 21 U/L (17-59) 12/02/19 04:54 ALT 13 U/L (<50) 12/02/19 04:54 Alkaline Phosphatase 74 U/L (38-126) 12/02/19 04:54 Creatine Kinase 137 U/L (55-170) 12/01/19 00:32 CK-MB (CK-2) 1.65 ng/mL (<4.55) 12/01/19 00:32 Troponin I 0.040 ng/mL 12/01/19 00:32 Total Protein 6.6 g/dL (6.3-8.2) 12/02/19 04:54 Albumin 3.3 g/dL (3.5-5.0) L 12/02/19 04:54 11/29/19 11/30/19 11/30/19 22:25 04:35 11:14 CK-MB (CK-2) 1.50 Troponin I < 0.012 0.049 0.047 11/30/19 12/01/19 18:03 00:32 CK-MB (CK-2) 1.44 1.65 Troponin I 0.052 0.040 Impressions: Chest X-Ray 11/29/19 22:52 IMPRESSION: No evidence of acute cardiopulmonary disease. Abdomen Ultrasound 12/01/19 00:00 IMPRESSION: FATTY INFILTRATION OF THE LIVER. NO OTHER SIGNIFICANT FINDING IN THE VISUALIZED ABDOMEN. Abdomen/Pelvis CT 12/01/19 00:00 IMPRESSION: No acute findings. Plan Time Spent: Greater than 30 Minutes - Follow outpatients cardiology and GI Stroke Is this a Stroke Patient?: No Acute Heart Failure - Is this a Heart Failure Patient?: No
[2019-12-02] MEDS ORDERED: LISINOPRIL 10 MG TABLET PO SCH (10:00)
[2019-12-02] MEDS: ENOXAPARIN SODIUM INJ 40 MG/0.4 ML DISP.SYRIN SUBCUT SCH (10:00)
[2019-12-02] MEDS: ASPIRIN 81 MG TABLET, ENT COATED PO SCH (10:00)
[2019-12-02] MEDS: ISOSORBIDE MONONITRATE 60 MG TAB.ER.24H PO SCH (10:00)
[2019-12-02] MEDS ORDERED: CARVEDILOL 12.5 MG TABLET PO SCH (10:00)
[2019-12-02] MEDS: FLUTICASONE/VILANTEROL 200-25 MCG/DOSE IH SCH (10:03)
[2019-12-02] MEDS: PANTOPRAZOLE SODIUM 40 MG TABLET.DR PO SCH (10:04)
[2019-12-02] MEDS: EZETIMIBE 10 MG TABLET PO SCH (10:04)
[2019-12-02 13:05] VITALS: BP 139/71
== END 2019-12-02 13:35 | disposition home or self-care (01) ==
LOC: ER 21:55 → EH 11-30 05:45 → 3W 11-30 11:44
PROVIDERS: ADMIT Family Medicine; ATTEND Internal Medicine Geriatric Medicine
DX: R10.13 Epigastric pain (principal); I25.10 Atherosclerotic heart disease of native coronary artery without angina pectoris; R07.9 Chest pain, unspecified; E78.5 Hyperlipidemia, unspecified; I10 Essential (primary) hypertension; K21.9 Gastro-esophageal reflux disease without esophagitis; I25.2 Old myocardial infarction; E66.9 Obesity, unspecified; R01.1 Cardiac murmur, unspecified; R79.89 Other specified abnormal findings of blood chemistry; Z79.82 Long term (current) use of aspirin; Z79.899 Other long term (current) drug therapy; Z95.1 Presence of aortocoronary bypass graft; Z87.891 Personal history of nicotine dependence
CPT/HCPCS: 93005 ×2; 99285; 36415 ×3; 82553 ×2; 82550 ×3; 85025 ×2; 80076; 80048; 80053 ×2; 84484 ×3; 71045; 76700; 74177; 93010 ×2; G0378 ×4; A9270 ×19; J1650 ×2; J3490